=== PATIENT | female | born 1935 | race Two or more races ===

== ENCOUNTER 2019-04-05 13:06 | Emergency (ER) | payer OTHER ==
[~2019-04-05] VITALS: Ht 157.5 cm; Wt 70.3 kg
[2019-04-05] MEDS ORDERED: COZAAR25 MG PO (13:23)
[2019-04-05] MEDS ORDERED: BUMETANIDE0.5 MG PO (13:24)
[2019-04-05] MEDS ORDERED: SYNTHROID50 MCG PO (13:24)
[2019-04-05] MEDS ORDERED: PENTOXIFYLLINE400 MG PO (13:24)
[2019-04-05] MEDS ORDERED: VALPROIC A250 MG/51 PO (13:25)
[2019-04-05] MEDS ORDERED: LIPITOR40 M1 PO (13:25)
== END 2019-04-05 23:29 | disposition home or self-care (01) ==
LOC: ER 13:06
DX: R10.13 Epigastric pain (principal)